=== PATIENT | female | born 1980 | race Caucasian/White ===

== ENCOUNTER 2019-03-31 19:58 | Emergency (ER) | payer OTHER ==
[~2019-03-31] VITALS: Ht 157.5 cm; Wt 81.8 kg
[2019-03-31] MEDS ORDERED: CLEOCIN HCL300 MG PO (20:12)
== END 2019-03-31 22:00 | disposition left against medical advice (07) ==
LOC: COL.ER 19:58
DX: R22.0 Localized swelling, mass and lump, head (principal)